=== PATIENT | female | born 1990 | race Caucasian/White ===

== ENCOUNTER 2016-11-14 12:41 | Emergency (ER) | payer OTHER ==
[~2016-11-14] VITALS: Ht 167.6 cm; Wt 93.2 kg
[2016-11-14 12:57] VITALS: BP 139/87; PULSE 85; RESP 14; O2SAT 100
--- NOTE | 2016-11-14 13:53 | DRSVH ---
PROCEDURE: CT BRAIN WITHOUT CONTRAST ([id number]) INDICATIONS: fall TECHNIQUE: Noncontrast 4.5 mm thick angled axial sections acquired from the foramen magnum to the vertex, with c oronal reformats. COMPARISON: None. FINDINGS: Image quality: Excellent. CSF spaces: Basal cisterns are patent. No extra-axial fluid collections. Ventricles are normal in size and shape. Brain: No midline shift. No intracranial masses or hemorrhage. Hopkins-white matter interface is norm al. Skull and face: Calvarium and visualized facial bones are intact, without suspicious lesions. Sinuses: Visualized sinuses and mastoids are clear. IMPRESSION: No acute intracranial disease process. Dictated by: Leandra Rivera MD, PhD on 11/14/2016 at 13:48 Approved by: Leandra Rivera MD, PhD on 11/14/2016 at 13:52
--- NOTE | 2016-11-14 14:18 | ED.REPORT ---
HPI-Head Prob / Injury Date of Service Nov 14, 2016 ED Provider: Dr. Keita The pt is a 26 y/o female with a hx of seizures (on Lamictal) who presents to the ED complaining of slow response mentally and physically for a week. The pt had a seizure and hit her head 8 days ago. Since then, she has been experiencing slowed speech, unsteady and slow gait, tenderness in the back of her head, vision change, fatigue, nausea, intermittent shortness of breath, photophobia, and weakness in both legs. The pt denies change in medications or starting any new medications. She has experienced similar sx after a seizure but they typically resolve within a day. She is concerned that her sx this time have persisted so long. Nursing Notes Stated Complaint: CONCUSSION/EPILEPSY Chief Complaint: Head, Face, Neck Trauma Nursing Notes Reviewed: Yes Allergies: Coded Allergies: No Known Allergies (Unverified , 11/14/16) Scheduled PRN Ondansetron ODT (Zofran ODT) 4 Mg Tablet 4 MG PO Q4H PRN PRN For Nausea General Time Seen by Provider: 14:30 Chief Complaint Other (slow response mentally and physcially) Hx Obtained From: Patient Arrived By: Walk-in Onset Occurred: More than a week ago... (8 days) Symptom Duration: Since onset Location: : Occipital region L: Occipital region R Quality: Painful Radiation: Does not radiate Severity: Current: Mild Severity: Maximum: Mild Recent Healthcare: No recent doctor visit Past Medical History Past Medical History Seizures Past Surgical History Tubes in ears Reports: Tonsillectomy Smoking History Unknown if Ever Smoker Social History Other Social History: Good social support Ambulatory Status Independent Review of Systems Reports: slowed speech Reports: unsteady gait Reports: photophobia Constitutional: Reports: Fatigue GI: Reports: Nausea Neurologic: Reports: Headache (tenderness on the bakc of the head), Vision change, Weakness (both legs) Complete sys rev & neg: except as marked. Respiratory: Reports: Shortness of breath (intermittent) Physical Exam Initial Vital Signs Vital Signs (First) Date Time Temp Pulse Resp B/P Pulse Ox O2 Delivery O2 Flow Rate FiO2 11/14/16 12:57 36.7 85 14 139/87 100 11/14/16 17:07 Room Air Initial VS: Reviewed Respiratory: Breath sounds normal, Clear to auscultation, No respiratory distress Cardiovascular: Regular rate & rhythm, Heart sounds normal, Intact distal pulses Abdomen / GI: Soft, Non-tender Extremities: Vascular intact, Neuro intact, No swelling, No tenderness Skin: Warm, Dry, No cyanosis General/Constitutional: Awake, Alert, No acute distress, Well appearing, Cooperative Head / Eyes: Atraumatic, Normocephalic, PERRL ENT: Atraumatic, Airway patent, Mucous membranes moist, Pharynx NL Neck: Atraumatic, Supple, Full range of motion Neurologic: Oriented X3, Speech NL, No motor deficits, No sensory deficits, CN II - XII intact, Gait NL Interpretation & Diagnostics Lab Results Interpretation Result Diagram: 11/14/16 1526 11/14/16 1526 Test 11/14/16 15:26 11/14/16 15:51 11/14/16 15:56 White Blood Count 8.2th/mm3 (3.8-10.1) Red Blood Count 4.46mil/mm3 (3.90-5.20) Hemoglobin 13.5g/dL (12.0-15.6) Hematocrit 40.9% (35.0-46.0) Mean Corpuscular Volume 91.7fL (81-100) Mean Corpuscular Hemoglobin 30.3pg (27.0-35.0) Mean Corpuscular Hemoglobin Concent 33.0% (32.0-37.0) Red Cell Distribution Width 13.5% (12.3-15.4) Platelet Count 294bil/L (150-400) Neutrophils (%) (Auto) 55.2% (40-74) Lymphocytes (%) (Auto) 34.7% (14-46) Monocytes (%) (Auto) 8.0% (4-12) Eosinophils (%) (Auto) 1.8% (0-5) Basophils (%) (Auto) 0.2% (0-3) Sodium Level 138mEq/L (134-144) Potassium Level 4.0mEq/L (3.5-5.2) Chloride Level 102mEq/L (97-108) Carbon Dioxide Level 23mmol/L (18-29) Blood Urea Nitrogen 12mg/dL (6-20) Creatinine 0.88mg/dL (0.57-1.00) Estimat Glomerular Filtration Rate 110mL/min (>59) Glucose Level 88mg/dL (60-99) Calcium Level 9.2mg/dL (8.5-10.1) Total Bilirubin 0.2mg/dL (0.0-1.2) Aspartate Amino Transf (AST/SGOT) 13U/L (0-50) Alanine Aminotransferase (ALT/SGPT) 11U/L (0-32) Alkaline Phosphatase 60U/L (25-150) Total Protein 7.4g/dL (6.4-8.4) Albumin 4.4g/dL (3.4-5.0) Hold Urine Received (Received) Hold Valentino Top Tube Received (Received) CT Head Interpretation IMPRESSION: No acute intracranial disease process. Dictated by: Leandra Rivera MD, PhD on 11/14/2016 at 13:48 Approved by: Leandra Rivera MD, PhD on 11/14/2016 at 13:52 Study: Head CT no contrast Interpretation / Wet Read by: Interpret - Radiologist Re-Eval/Medical Decision Med Decision/Clinical Course Patient's symptoms sound consistent with a mild postconcussive episode after head injury. She had a seizure several days ago likely related to noncompliance with medication. She does not have any focal or obvious neurologic deficits that would suggest stroke head CT is negative for trauma, basic electrolytes and CBC and urine are normal. Lamictal level is pending and can be followed up as an outpatient. Return and follow-up precautions given. Source of Hx: Old records Re-Evaluation/Progress : Time of Eval: 16:13 Re-Evaluation/Progress Note: Rechecked pt. Discussed imaging results, diagnosis and plan to discharge. Pt understands and agrees with the plan. F/U instruction and RTER warning given. All questions addressed. Counseled Regarding: Diagnosis, Need for follow-up, When/why to return to ED Discharge & Departure Primary Impression: Head injury Encounter type: initial encounter Qualified Code: S09.90XA - Unspecified injury of head, initial encounter Disposition: Home All VS Reviewed: Yes Condition: Stable Additional Instructions: Your labs are reassuring. Continue to rest, use Tylenol and ibuprofen for headache. Neurologist in regular doctor in the next few days as needed. Return to the ER if you develop progressive confusion, focal neurologic deficits concerning for stroke, or other concerns. Referrals: Dacia Mann (PCP) Scribe Attestation Portions of this note were transcribed by Iain Bliss. I,, personally performed the history, physical exam and medical decision-making;I reviewed and confirmed the accuracy of the information in the transcribed note. Signed by Sadie Knutson. 11/14/16 copies to: Dacia Mann Timothy S DO Nov 14, 2016 14:18 Iain Bliss Nov 14, 2016 14:52
[2016-11-14 15:46] LABS: BASOPHILS % (AUTO) 0.2 % (0-3); EOSINOPHILS % (AUTO) 1.8 % (0-5); Mean Corpuscular Hemoglobin 30.3 pg (27.0-35.0); Mean Corpuscular Volume 91.7 fL (81-100); NEUTROPHILS % (AUTO) 55.2 % (40-74); Platelet Count 294 bil/L (150-400)
[2016-11-14] MEDS ORDERED: ONDA4TAB9 PO (16:16)
[2016-11-14 17:07] VITALS: BP 120/76; PULSE 73; RESP 20; O2SAT 99
== END 2016-11-14 17:07 | disposition home or self-care (01) ==
LOC: SED 12:41
DX: S09.90XA Unspecified injury of head, initial encounter (principal); W22.8XXA Striking against or struck by other objects, initial encounter; Y93.9 Activity, unspecified; Y92.9 Unspecified place or not applicable; Y99.9 Unspecified external cause status